=== PATIENT | male | born 1980 | race Caucasian/White ===

== ENCOUNTER 2016-10-23 07:30 | Emergency (ER) | payer MEDICAID ==
[~2016-10-23] VITALS: Ht 167.6 cm; Wt 96.0 kg
[2016-10-23] MEDS ORDERED: MORPHINE SULFATE 4 MG/ML CPJ (NOT FOR IM USE) IV STA (08:48)
[2016-10-23] MEDS ORDERED: SODIUM CHLORIDE 0.9% 1,000 ML IV ONE (08:48)
[2016-10-23] MEDS ORDERED: ONDANSETRON HCL 4MG/2ML VIAL IV STA (08:48)
[2016-10-23 09:06] LABS: BASOPHILS % 0.4 % (0.0-2.0); HEMATOCRIT. 42.8 % (42.0-52.0); HEMOGLOBIN. 14.7 g/dL (14.0-18.0); LYMPHOCYTES % 8.7 % (20.0-50.0); MEAN CORPUSCULAR HEMOGLOBIN 30.3 pg (28.0-32.0); MEAN CORPUSCULAR VOLUME 88.4 fL (80.0-94.0); MEAN PLATELET VOLUME 8.2 fl (7.4-10.4); MONOCYTES % 4.3 % (2.0-8.0); NEUTROPHILS % 86.6 % (40.0-76.0); PLATELET 182 x1000/uL (130-400); RED BLOOD CELL COUNT 4.84 mill/uL (4.7-6.1)
[2016-10-23 09:09] LABS: CHLORIDE 104 mEq/L (98-107)
[2016-10-23 09:10] LABS: INR 1.1; PROTHROMBIN TIME 11.7 sec
[2016-10-23 09:18] LABS: CARBON DIOXIDE 23 mEq/L (21-32)
[2016-10-23 09:18] LABS: GLUCOSE URINE NEGATIVE (NEGATIVE); KETONES URINE TRACE (NEGATIVE); LEUKOCYTE ESTERASE URINE NEGATIVE (NEGATIVE); NITRITE URINE NEGATIVE (NEGATIVE); OCCULT BLOOD URINE NEGATIVE (NEGATIVE); PH URINE 5.5 (4.5-8.0); PROTEIN URINE 1+ (NEGATIVE); SPECIFIC GRAVITY URINE 1.023 (1.005-1.030); UROBILINOGEN URINE 0.2 E.U./dL (0.2-1.0)
[2016-10-23 09:21] LABS: CLARITY URINE CLEAR (CLEAR); COLOR URINE DARK YELLOW (YELLOW)
[2016-10-23 11:11] VITALS: BP 129/84
== END 2016-10-23 11:13 | disposition home or self-care (01) ==
LOC: ER 08:29
DX: R10.9 Unspecified abdominal pain (principal)
CPT/HCPCS: 36415; 80053; 81001; 83690; 85025; 85610; 96361; 96374; 96375; 99285; J2270; J2405; J7030

== ENCOUNTER 2016-10-27 07:43 | Emergency (ER) | payer MEDICAID ==
[~2016-10-27] VITALS: Ht 167.6 cm; Wt 95.0 kg
[2016-10-27] MEDS ORDERED: ONDANSETRON 4MG ODT PO ONE (09:45)
[2016-10-27] MEDS ORDERED: MORPHINE SULFATE 10 MG/ML CPJ IM ONE (09:45)
[2016-10-27] MEDS ORDERED: DOCUSATE SODIUM 100MG CAPSULE PO ONE (09:45)
[2016-10-27 09:53] LABS: BASOPHILS % 0.3 % (0.0-2.0); EOSINOPHILS % 0.2 % (0.0-5.0); HEMATOCRIT. 43.2 % (42.0-52.0); HEMOGLOBIN. 14.6 g/dL (14.0-18.0); LYMPHOCYTES % 13.5 % (20.0-50.0); MEAN CORPUSCULAR VOLUME 88.9 fL (80.0-94.0); MEAN PLATELET VOLUME 8.1 fl (7.4-10.4); MONOCYTES % 11.4 % (2.0-8.0); NEUTROPHILS % 74.6 % (40.0-76.0); PLATELET 283 x1000/uL (130-400); RED BLOOD CELL COUNT 4.86 mill/uL (4.7-6.1); RED CELL DISTRIBUTION WIDTH 14.1 % (11.6-14.6)
[2016-10-27 10:00] LABS: INR 1.1; PROTHROMBIN TIME 10.9 sec
[2016-10-27 10:04] LABS: CARBON DIOXIDE 27 mEq/L (21-32); CHLORIDE 101 mEq/L (98-107)
[2016-10-27 11:37] LABS: CLARITY URINE CLEAR (CLEAR); COLOR URINE DARK YELLOW (YELLOW); GLUCOSE URINE NEGATIVE (NEGATIVE); KETONES URINE NEGATIVE (NEGATIVE); LEUKOCYTE ESTERASE URINE NEGATIVE (NEGATIVE); NITRITE URINE NEGATIVE (NEGATIVE); OCCULT BLOOD URINE NEGATIVE (NEGATIVE); PROTEIN URINE 1+ (NEGATIVE); SPECIFIC GRAVITY URINE 1.025 (1.005-1.030)
[2016-10-27 13:45] VITALS: BP 141/92
== END 2016-10-27 14:23 | disposition home or self-care (01) ==
LOC: ER 09:32
DX: R10.9 Unspecified abdominal pain (principal); K62.89 Other specified diseases of anus and rectum; K59.00 Constipation, unspecified; R03.0 Elevated blood-pressure reading, without diagnosis of hypertension; K76.0 Fatty (change of) liver, not elsewhere classified; R50.9 Fever, unspecified
CPT/HCPCS: 36415; 76700; 80053; 81001; 83690; 85025; 85610; 96372; 99285; J2270; Q0162

== ENCOUNTER 2020-05-08 14:27 | Inpatient (IN) | payer MEDICAID, OTHER ==
[~2020-05-08] VITALS: Ht 167.6 cm; Wt 90.0 kg
[2020-05-08] MEDS ORDERED: DEXAMETHASONE 4MG/ML 1ML VIAL IV ONE (15:15)
[2020-05-08 15:29] LABS: BASOPHILS % 0.3 % (0.0-2.0); HEMOGLOBIN. 13.5 g/dL (14.0-18.0); LYMPHOCYTES % 10.2 % (20.0-50.0); MEAN CORPUSCULAR HEMOGLOBIN 30.4 pg (28.0-32.0); MEAN CORPUSCULAR VOLUME 88.1 fL (80.0-94.0); MONOCYTES % 6.1 % (2.0-8.0); NEUTROPHILS % 83.4 % (40.0-76.0); RED BLOOD CELL COUNT 4.42 mill/uL (4.7-6.1); RED CELL DISTRIBUTION WIDTH 13.9 % (11.6-14.6)
[2020-05-08 15:35] LABS: CHLORIDE 101 mEq/L (98-107)
[2020-05-08] MEDS ORDERED: NITROGLYCERIN 0.4MG TABLET SL SL PRN (16:00)
[2020-05-08] MEDS ORDERED: ONDANSETRON HCL 4MG/2ML INJ IV PRN (16:00)
[2020-05-08] MEDS ORDERED: NEBIVOLOL HCL 5 MG TABLET PO NR (16:00)
[2020-05-08] MEDS ORDERED: ACETAMINOPHEN 650MG/20.3ML UDC PO NR (16:00)
[2020-05-08] MEDS ORDERED: DEXTROSE 50% WATER 50ML SYRINGE IV PRN (16:00)
[2020-05-08] MEDS ORDERED: TRAZODONE HCL 50MG TABLET PO PRN (16:00)
[2020-05-08 16:07] LABS: PLATELET 165 x1000/uL (130-400)
[2020-05-08 16:08] LABS: MEAN PLATELET VOLUME 8.7 fl (7.4-10.4)
[2020-05-08] MEDS: ENOXAPARIN 100MG/ML SYR SUBCUT SCH (16:30)
[2020-05-08] MEDS: METOPROLOL TARTRATE 25MG TABLET PO SCH (17:00)
[2020-05-08] MEDS ORDERED: CEFTRIAXONE 1 G PREMIX 50 ML IV SCH (17:00)
[2020-05-08] MEDS ORDERED: AZITHROMYCIN 500 MG in DEXT 5% WATER 250 ML IV SCH (17:00)
[2020-05-08] MEDS: BLOOD SUGAR DIAGNOSTIC STRIP TEST SCH ×2 (17:00→21:34)
[2020-05-08] MEDS: INSULIN LISPRO 100 UNITS/ML SUBCUT SCH ×2 (18:20→21:48)
[2020-05-08 18:56] LABS: CLARITY URINE CLEAR (CLEAR); COLOR URINE DARK YELLOW (YELLOW); KETONES URINE TRACE (NEGATIVE); LEUKOCYTE ESTERASE URINE NEGATIVE (NEGATIVE); NITRITE URINE NEGATIVE (NEGATIVE); OCCULT BLOOD URINE 2+ (NEGATIVE); PH URINE 5.5 (4.5-8.0); PROTEIN URINE 2+ (NEGATIVE); SPECIFIC GRAVITY URINE 1.027 (1.005-1.030)
[2020-05-08 19:23] LABS: *AMPHETAMINES SCREEN URINE NEGATIVE (NEGATIVE); *BARBITURATES SCREEN URINE NEGATIVE (NEGATIVE); *BENZODIAZEPINES SCREEN URINE NEGATIVE (NEGATIVE); *COCAINE SCREEN URINE NEGATIVE (NEGATIVE)
[2020-05-08 19:24] LABS: CANNABINOID URINE SCREEN NEGATIVE (NEGATIVE); METHADONE URINE SCREEN NEGATIVE (NEGATIVE); OPIATES URINE SCREEN NEGATIVE (NEGATIVE); PHENCYCLIDINE URINE SCREEN NEGATIVE (NEGATIVE)
[2020-05-08 20:59] LABS: BG BASE EXCESS -0.3 mmol/L (-2.0-2.0); BG FRACTION INSPIRED OXYGEN 100; BG HCO3 ACT 21.8 mmol/L (22.0-26.0); BG PCO2 29.3 mmHg (35.0-45.0); BG PH 7.489 (7.350-7.450); BG PO2 76.1 mmHg (75.0-100.0); BG SAMPLE SITE RIGHT RADIAL; BG VENT MODE MASK - BIPAP
[2020-05-09 05:48] LABS: BASOPHILS % 0.7 % (0.0-2.0); HEMATOCRIT. 38.7 % (42.0-52.0); HEMOGLOBIN. 13.3 g/dL (14.0-18.0); LYMPHOCYTES % 14.2 % (20.0-50.0); MEAN CORPUSCULAR HEMOGLOBIN 30.6 pg (28.0-32.0); MEAN CORPUSCULAR VOLUME 89.1 fL (80.0-94.0); MEAN PLATELET VOLUME 8.7 fl (7.4-10.4); MONOCYTES % 5.9 % (2.0-8.0); NEUTROPHILS % 79.2 % (40.0-76.0); PLATELET 148 x1000/uL (130-400); RED BLOOD CELL COUNT 4.34 mill/uL (4.7-6.1); RED CELL DISTRIBUTION WIDTH 13.9 % (11.6-14.6)
[2020-05-09 05:58] LABS: INR 1.1; PROTHROMBIN TIME 11.5 sec (9.6-11.0)
[2020-05-09 06:02] LABS: CHLORIDE 101 mEq/L (98-107)
[2020-05-09 06:08] LABS: LDL CHOLESTEROL 75 mg/dL (5-100)
[2020-05-09 06:10] LABS: HDL CHOLESTEROL 42 mg/dL (40-59); TOTAL IRON BINDING CAPACITY 218 ug/dL (250-450)
[2020-05-09] MEDS: INSULIN LISPRO 100 UNITS/ML SUBCUT SCH ×4 (06:42→21:00)
[2020-05-09] MEDS: BLOOD SUGAR DIAGNOSTIC STRIP TEST SCH ×3 (06:42→17:40)
[2020-05-09] MEDS: ENOXAPARIN 100MG/ML SYR SUBCUT SCH ×2 (06:42→18:43)
[2020-05-09] MEDS: METOPROLOL TARTRATE 25MG TABLET PO SCH ×2 (09:23→18:41)
[2020-05-09] MEDS: ASPIRIN 81MG EC TABLET PO SCH (09:24)
[2020-05-09] MEDS: DEXAMETHASONE 10 MG/ML VIAL IV SCH (09:24)
[2020-05-09] MEDS ORDERED: ALBUTEROL 6.7GM HFA INHALER ORI PRN (11:15)
[2020-05-09 16:00] VITALS: BP 110/53
[2020-05-09 17:45] VITALS: BP 126/94
[2020-05-09] MEDS ORDERED: AZITHROMYCIN 500 MG in DEXT 5% WATER 250 ML IV SCH (18:00)
[2020-05-09 18:21] VITALS: BP 126/94
[2020-05-09 18:23] VITALS: BP 126/94
[2020-05-09] MEDS: CEFTRIAXONE 1,000 MG in DEXTROSE 5% WATER 50 ML IV SCH (18:41)
[2020-05-09 20:00] VITALS: BP 120/77
[2020-05-09] MEDS: AZITHROMYCIN 500 MG in DEXT 5% WATER 250 ML IV SCH (21:29)
[2020-05-10] VITALS: BP 131/85
[2020-05-10 04:00] VITALS: BP 115/74
[2020-05-10] MEDS: ENOXAPARIN 100MG/ML SYR SUBCUT SCH ×2 (05:54→17:16)
[2020-05-10 06:38] LABS: HEMATOCRIT. 39.6 % (42.0-52.0); HEMOGLOBIN. 13.6 g/dL (14.0-18.0); MEAN CORPUSCULAR HEMOGLOBIN 30.9 pg (28.0-32.0); MEAN CORPUSCULAR VOLUME 90.1 fL (80.0-94.0); MEAN PLATELET VOLUME 9.5 fl (7.4-10.4); PLATELET 194 x1000/uL (130-400); RED CELL DISTRIBUTION WIDTH 14.2 % (11.6-14.6)
[2020-05-10] MEDS: BLOOD SUGAR DIAGNOSTIC STRIP TEST SCH ×4 (06:50→21:00)
[2020-05-10] MEDS: INSULIN LISPRO 100 UNITS/ML SUBCUT SCH ×4 (07:23→21:00)
[2020-05-10 07:57] LABS: CHLORIDE 106 mEq/L (98-107)
[2020-05-10 08:00] VITALS: BP 128/71
[2020-05-10] MEDS: ASPIRIN 81MG EC TABLET PO SCH (08:46)
[2020-05-10] MEDS: DEXAMETHASONE 10 MG/ML VIAL IV SCH (08:46)
[2020-05-10] MEDS: METOPROLOL TARTRATE 25MG TABLET PO SCH ×2 (08:51→17:12)
[2020-05-10 12:00] VITALS: BP 123/68
[2020-05-10 13:45] LABS: PLATELET ESTIMATE NORMAL
[2020-05-10 16:00] VITALS: BP 125/77
[2020-05-10] MEDS: AZITHROMYCIN 500 MG in DEXT 5% WATER 250 ML IV SCH (17:12)
[2020-05-10] MEDS: CEFTRIAXONE 1,000 MG in DEXTROSE 5% WATER 50 ML IV SCH (17:12)
[2020-05-10 20:00] VITALS: BP 132/84
[2020-05-11 00:07] VITALS: BP 132/90
[2020-05-11 04:40] VITALS: BP 125/98
[2020-05-11 06:26] LABS: BASOPHILS % 0.2 % (0.0-2.0); HEMATOCRIT. 40.1 % (42.0-52.0); HEMOGLOBIN. 13.5 g/dL (14.0-18.0); LYMPHOCYTES % 8.2 % (20.0-50.0); MEAN CORPUSCULAR HEMOGLOBIN 30.3 pg (28.0-32.0); MEAN CORPUSCULAR VOLUME 90.1 fL (80.0-94.0); MEAN PLATELET VOLUME 9.2 fl (7.4-10.4); MONOCYTES % 2.5 % (2.0-8.0); NEUTROPHILS % 89.1 % (40.0-76.0); PLATELET 190 x1000/uL (130-400); RED BLOOD CELL COUNT 4.45 mill/uL (4.7-6.1); RED CELL DISTRIBUTION WIDTH 13.5 % (11.6-14.6)
[2020-05-11] MEDS: ENOXAPARIN 100MG/ML SYR SUBCUT SCH ×2 (06:30→18:04)
[2020-05-11] MEDS: BLOOD SUGAR DIAGNOSTIC STRIP TEST SCH ×4 (06:33→21:11)
[2020-05-11] MEDS: INSULIN LISPRO 100 UNITS/ML SUBCUT SCH ×4 (06:33→21:00)
[2020-05-11 06:50] LABS: CHLORIDE 107 mEq/L (98-107)
[2020-05-11 08:00] VITALS: BP 135/70
[2020-05-11] MEDS: ASPIRIN 81MG EC TABLET PO SCH (09:15)
[2020-05-11] MEDS: METOPROLOL TARTRATE 25MG TABLET PO SCH ×2 (09:15→17:00)
[2020-05-11] MEDS: DEXAMETHASONE 10 MG/ML VIAL IV SCH (09:15)
[2020-05-11 12:27] VITALS: BP 141/83
[2020-05-11 16:00] VITALS: BP 106/76
[2020-05-11] MEDS: CEFTRIAXONE 1,000 MG in DEXTROSE 5% WATER 50 ML IV SCH (18:04)
[2020-05-11] MEDS: AZITHROMYCIN 500 MG in DEXT 5% WATER 250 ML IV SCH (18:04)
[2020-05-11 20:00] VITALS: BP 113/65
[2020-05-12] VITALS: BP 121/85
[2020-05-12 04:00] VITALS: BP 130/82
[2020-05-12] MEDS: ENOXAPARIN 100MG/ML SYR SUBCUT SCH ×2 (06:57→17:47)
[2020-05-12] MEDS: BLOOD SUGAR DIAGNOSTIC STRIP TEST SCH ×4 (07:39→21:00)
[2020-05-12] MEDS: INSULIN LISPRO 100 UNITS/ML SUBCUT SCH ×4 (07:39→21:00)
[2020-05-12 08:00] VITALS: BP 120/82
[2020-05-12 08:29] LABS: CHLORIDE 106 mEq/L (98-107)
[2020-05-12 08:45] LABS: HEMATOCRIT. 42.2 % (42.0-52.0); HEMOGLOBIN. 14.2 g/dL (14.0-18.0); LYMPHOCYTES % 9.1 % (20.0-50.0); MEAN CORPUSCULAR HEMOGLOBIN 30.1 pg (28.0-32.0); MEAN CORPUSCULAR VOLUME 89.5 fL (80.0-94.0); MEAN PLATELET VOLUME 9.5 fl (7.4-10.4); MONOCYTES % 2.1 % (2.0-8.0); NEUTROPHILS % 88.8 % (40.0-76.0); PLATELET 221 x1000/uL (130-400); RED BLOOD CELL COUNT 4.72 mill/uL (4.7-6.1); RED CELL DISTRIBUTION WIDTH 13.9 % (11.6-14.6)
[2020-05-12] MEDS: DEXAMETHASONE 10 MG/ML VIAL IV SCH (09:24)
[2020-05-12] MEDS: ASPIRIN 81MG EC TABLET PO SCH (09:24)
[2020-05-12] MEDS: METOPROLOL TARTRATE 25MG TABLET PO SCH ×2 (09:25→17:47)
[2020-05-12 12:00] VITALS: BP 121/67
[2020-05-12 16:00] VITALS: BP 115/58
[2020-05-12] MEDS: AZITHROMYCIN 500 MG in DEXT 5% WATER 250 ML IV SCH (17:47)
[2020-05-12] MEDS: CEFTRIAXONE 1,000 MG in DEXTROSE 5% WATER 50 ML IV SCH (17:47)
[2020-05-12 20:00] VITALS: BP 112/72
[2020-05-12] MEDS ORDERED: IVERMECTIN 3 MG TABLET PO NR (22:00)
[2020-05-13] VITALS (7 sets, daily range): BP systolic 94–147; BP diastolic 50–71
[2020-05-13] MEDS: ENOXAPARIN 100MG/ML SYR SUBCUT SCH ×2 (06:38→17:24)
[2020-05-13 06:58] LABS: CHLORIDE 104 mEq/L (98-107)
[2020-05-13 07:33] LABS: HEMATOCRIT. 43.6 % (42.0-52.0); HEMOGLOBIN. 14.5 g/dL (14.0-18.0); MEAN CORPUSCULAR HEMOGLOBIN 29.7 pg (28.0-32.0); MEAN CORPUSCULAR VOLUME 89.1 fL (80.0-94.0); MEAN PLATELET VOLUME 9.3 fl (7.4-10.4); PLATELET 255 x1000/uL (130-400); RED CELL DISTRIBUTION WIDTH 13.7 % (11.6-14.6)
[2020-05-13] MEDS: BLOOD SUGAR DIAGNOSTIC STRIP TEST SCH ×4 (07:40→21:17)
[2020-05-13] MEDS: INSULIN LISPRO 100 UNITS/ML SUBCUT SCH ×4 (08:10→22:00)
[2020-05-13] MEDS: METOPROLOL TARTRATE 25MG TABLET PO SCH ×2 (08:58→17:25)
[2020-05-13] MEDS: DEXAMETHASONE 10 MG/ML VIAL IV SCH (09:27)
[2020-05-13] MEDS: ASPIRIN 81MG EC TABLET PO SCH (09:27)
[2020-05-13] MEDS: ACETAMINOPHEN 325MG TABLET PO PRN (12:25)
[2020-05-13 13:07] LABS: ATYPICAL LYMPHOCYTES 1; PLATELET ESTIMATE NORMAL
[2020-05-14] VITALS: BP 104/70
[2020-05-14] MEDS: ENOXAPARIN 100MG/ML SYR SUBCUT SCH ×2 (06:24→16:40)
[2020-05-14 06:40] LABS: HEMATOCRIT. 44.4 % (42.0-52.0); HEMOGLOBIN. 15.1 g/dL (14.0-18.0); MEAN CORPUSCULAR HEMOGLOBIN 30.5 pg (28.0-32.0); MEAN CORPUSCULAR VOLUME 90.1 fL (80.0-94.0); MEAN PLATELET VOLUME 9.6 fl (7.4-10.4); PLATELET 283 x1000/uL (130-400); RED BLOOD CELL COUNT 4.93 mill/uL (4.7-6.1); RED CELL DISTRIBUTION WIDTH 13.8 % (11.6-14.6)
[2020-05-14 07:33] LABS: CHLORIDE 103 mEq/L (98-107)
[2020-05-14] MEDS: INSULIN LISPRO 100 UNITS/ML SUBCUT SCH ×2 (08:10→12:51)
[2020-05-14] MEDS: BLOOD SUGAR DIAGNOSTIC STRIP TEST SCH ×2 (08:32→12:50)
[2020-05-14] MEDS: ASPIRIN 81MG EC TABLET PO SCH (08:58)
[2020-05-14] MEDS: DEXAMETHASONE 10 MG/ML VIAL IV SCH (08:58)
[2020-05-14] MEDS: METOPROLOL TARTRATE 25MG TABLET PO SCH ×3 (08:59→17:00)
[2020-05-14 12:00] VITALS: BP 126/56
[2020-05-14 14:37] LABS: PLATELET ESTIMATE NORMAL
[2020-05-14 16:00] VITALS: BP 96/55
[2020-05-14 20:00] VITALS: BP 109/75
[2020-05-14] MEDS ORDERED: IVERMECTIN 3 MG TABLET PO NR (22:00)
[2020-05-15] VITALS: BP 124/74
[2020-05-15 04:00] VITALS: BP 113/83
[2020-05-15] MEDS: ENOXAPARIN 100MG/ML SYR SUBCUT SCH ×2 (06:32→17:16)
[2020-05-15 07:29] LABS: HEMATOCRIT. 44.3 % (42.0-52.0); HEMOGLOBIN. 14.7 g/dL (14.0-18.0); MEAN CORPUSCULAR VOLUME 90.4 fL (80.0-94.0); MEAN PLATELET VOLUME 9.2 fl (7.4-10.4); PLATELET 294 x1000/uL (130-400); RED CELL DISTRIBUTION WIDTH 13.8 % (11.6-14.6)
[2020-05-15 08:00] VITALS: BP 106/71
[2020-05-15 08:14] LABS: CHLORIDE 105 mEq/L (98-107)
[2020-05-15] MEDS: METOPROLOL TARTRATE 25MG TABLET PO SCH ×2 (09:00→17:16)
[2020-05-15] MEDS: ASPIRIN 81MG EC TABLET PO SCH (09:26)
[2020-05-15] MEDS: DEXAMETHASONE 10 MG/ML VIAL IV SCH (09:26)
[2020-05-15 14:16] LABS: PLATELET ESTIMATE NORMAL
[2020-05-15 16:00] VITALS: BP 127/75
[2020-05-15 20:00] VITALS: BP 133/67
[2020-05-16] VITALS: BP 135/73
[2020-05-16 04:00] VITALS: BP 123/72
[2020-05-16] MEDS: ENOXAPARIN 100MG/ML SYR SUBCUT SCH ×2 (06:33→17:00)
[2020-05-16 07:20] LABS: CHLORIDE 105 mEq/L (98-107)
[2020-05-16 07:24] LABS: HEMOGLOBIN. 14.4 g/dL (14.0-18.0); MEAN CORPUSCULAR HEMOGLOBIN 30.3 pg (28.0-32.0); MEAN CORPUSCULAR VOLUME 89.9 fL (80.0-94.0); MEAN PLATELET VOLUME 9.4 fl (7.4-10.4); PLATELET 310 x1000/uL (130-400); RED BLOOD CELL COUNT 4.78 mill/uL (4.7-6.1); RED CELL DISTRIBUTION WIDTH 13.5 % (11.6-14.6)
[2020-05-16 08:00] VITALS: BP 110/76
[2020-05-16] MEDS: ASPIRIN 81MG EC TABLET PO SCH (08:56)
[2020-05-16] MEDS: DEXAMETHASONE 10 MG/ML VIAL IV SCH (08:57)
[2020-05-16] MEDS: METOPROLOL TARTRATE 25MG TABLET PO SCH ×2 (08:57→17:00)
[2020-05-16 18:00] LABS: PLATELET ESTIMATE NORMAL
[2020-05-16 20:00] VITALS: BP 107/77
[2020-05-17] VITALS: BP 109/72
[2020-05-17 04:00] VITALS: BP 92/61
[2020-05-17] MEDS: ENOXAPARIN 100MG/ML SYR SUBCUT SCH ×2 (06:03→16:15)
[2020-05-17 06:41] LABS: MEAN CORPUSCULAR VOLUME 90.1 fL (80.0-94.0); MEAN PLATELET VOLUME 9.4 fl (7.4-10.4); PLATELET 304 x1000/uL (130-400); RED BLOOD CELL COUNT 4.99 mill/uL (4.7-6.1); RED CELL DISTRIBUTION WIDTH 13.4 % (11.6-14.6)
[2020-05-17 07:03] LABS: CHLORIDE 103 mEq/L (98-107)
[2020-05-17] MEDS: METOPROLOL TARTRATE 25MG TABLET PO SCH ×2 (09:00→16:15)
[2020-05-17] MEDS: ASPIRIN 81MG EC TABLET PO SCH (09:16)
[2020-05-17] MEDS: DEXAMETHASONE 10 MG/ML VIAL IV SCH (09:16)
[2020-05-17 17:28] LABS: PLATELET ESTIMATE NORMAL
[2020-05-17 20:00] VITALS: BP 109/62
[2020-05-18] VITALS: BP 111/61
[2020-05-18 04:00] VITALS: BP 103/45
[2020-05-18] MEDS: ENOXAPARIN 100MG/ML SYR SUBCUT SCH ×2 (06:48→17:35)
[2020-05-18] MEDS: METOPROLOL TARTRATE 25MG TABLET PO SCH ×2 (07:59→17:00)
[2020-05-18 08:00] VITALS: BP 101/85
[2020-05-18] MEDS: ASPIRIN 81MG EC TABLET PO SCH (08:08)
[2020-05-18] MEDS: DEXAMETHASONE 10 MG/ML VIAL IV SCH (08:09)
[2020-05-18 12:00] VITALS: BP 100/76
[2020-05-18 16:00] VITALS: BP 107/72
[2020-05-18 20:00] VITALS: BP 102/70
[2020-05-19] VITALS: BP 100/69
[2020-05-19 03:58] VITALS: BP 96/58
[2020-05-19] MEDS: ENOXAPARIN 100MG/ML SYR SUBCUT SCH ×2 (05:04→17:44)
[2020-05-19 08:01] VITALS: BP 103/59
[2020-05-19] MEDS: ASPIRIN 81MG EC TABLET PO SCH (08:44)
[2020-05-19] MEDS: DEXAMETHASONE 10 MG/ML VIAL IV SCH (08:44)
[2020-05-19] MEDS: METOPROLOL TARTRATE 25MG TABLET PO SCH ×2 (08:45→17:00)
[2020-05-19 12:00] VITALS: BP 102/66
[2020-05-19 16:00] VITALS: BP 11/74
[2020-05-19 20:00] VITALS: BP 107/67
[2020-05-20] VITALS (7 sets, daily range): BP systolic 93–125; BP diastolic 49–76
[2020-05-20] MEDS: ENOXAPARIN 100MG/ML SYR SUBCUT SCH ×2 (05:06→17:26)
[2020-05-20] MEDS: METOPROLOL TARTRATE 25MG TABLET PO SCH ×2 (08:38→16:38)
[2020-05-20] MEDS: ASPIRIN 81MG EC TABLET PO SCH (08:44)
[2020-05-21] VITALS: BP 108/66
[2020-05-21 04:00] VITALS: BP 104/75
[2020-05-21] MEDS: ENOXAPARIN 100MG/ML SYR SUBCUT SCH ×2 (05:18→17:11)
[2020-05-21 08:00] VITALS: BP 117/86
[2020-05-21] MEDS: METOPROLOL TARTRATE 25MG TABLET PO SCH ×2 (08:16→17:10)
[2020-05-21] MEDS: ASPIRIN 81MG EC TABLET PO SCH (08:16)
[2020-05-21] MEDS: GUAIFENESIN 200MG/10ML SUGAR FREE UDC PO PRN ×2 (08:33→17:09)
[2020-05-21 12:00] VITALS: BP 111/72
[2020-05-21 16:00] VITALS: BP 117/81
[2020-05-21 20:00] VITALS: BP 93/55
[2020-05-22] VITALS (7 sets, daily range): BP systolic 81–120; BP diastolic 49–75
[2020-05-22] MEDS: ACETAMINOPHEN 325MG TABLET PO PRN (00:45)
[2020-05-22] MEDS: ENOXAPARIN 100MG/ML SYR SUBCUT SCH ×2 (05:53→17:17)
[2020-05-22] MEDS: ASPIRIN 81MG EC TABLET PO SCH (08:26)
[2020-05-22] MEDS: GUAIFENESIN 200MG/10ML SUGAR FREE UDC PO PRN (08:26)
[2020-05-22] MEDS: METOPROLOL TARTRATE 25MG TABLET PO SCH ×2 (08:27→17:18)
[2020-05-23 04:00] VITALS: BP 100/71
[2020-05-23] MEDS: ENOXAPARIN 100MG/ML SYR SUBCUT SCH ×2 (06:00→17:29)
[2020-05-23 08:19] VITALS: BP 132/71
[2020-05-23] MEDS: ASPIRIN 81MG EC TABLET PO SCH (08:21)
[2020-05-23] MEDS: METOPROLOL TARTRATE 25MG TABLET PO SCH (08:21)
[2020-05-23 12:00] VITALS: BP 113/74
[2020-05-23] MEDS: NEBIVOLOL HCL 5 MG TABLET PO SCH (15:16)
[2020-05-23 16:00] VITALS: BP 97/58
[2020-05-23 16:01] LABS: BASOPHILS % 0.4 % (0.0-2.0); EOSINOPHILS % 4.7 % (0.0-5.0); HEMOGLOBIN. 12.9 g/dL (14.0-18.0); LYMPHOCYTES % 12.3 % (20.0-50.0); MEAN CORPUSCULAR VOLUME 90.2 fL (80.0-94.0); MEAN PLATELET VOLUME 8.4 fl (7.4-10.4); MONOCYTES % 2.9 % (2.0-8.0); NEUTROPHILS % 79.7 % (40.0-76.0); PLATELET 270 x1000/uL (130-400); RED BLOOD CELL COUNT 4.32 mill/uL (4.7-6.1); RED CELL DISTRIBUTION WIDTH 14.2 % (11.6-14.6)
[2020-05-23 16:13] LABS: CHLORIDE 105 mEq/L (98-107)
[2020-05-23 20:00] VITALS: BP 100/50
[2020-05-24 00:01] VITALS: BP 108/61
[2020-05-24 04:00] VITALS: BP 113/80
[2020-05-24] MEDS: ENOXAPARIN 100MG/ML SYR SUBCUT SCH ×2 (05:31→17:44)
[2020-05-24 08:00] VITALS: BP 102/69
[2020-05-24] MEDS: NEBIVOLOL HCL 5 MG TABLET PO SCH (08:28)
[2020-05-24] MEDS: ASPIRIN 81MG EC TABLET PO SCH (08:28)
[2020-05-24 12:00] VITALS: BP 102/69
[2020-05-24 16:00] VITALS: BP 102/69
[2020-05-24] MEDS: GUAIFENESIN 200MG/10ML SUGAR FREE UDC PO PRN (17:44)
[2020-05-24 20:00] VITALS: BP 101/52
[2020-05-25 00:05] VITALS: BP 107/66
[2020-05-25 04:00] VITALS: BP 119/64
[2020-05-25] MEDS: ENOXAPARIN 100MG/ML SYR SUBCUT SCH ×2 (05:41→16:56)
[2020-05-25 08:00] VITALS: BP 119/64
[2020-05-25 09:47] LABS: BG BASE EXCESS 1.5 mmol/L (-2.0-2.0); BG CARBOXYHEMOGLOBIN 0.1 % (0.5-1.5); BG DEOXYHEMOGLOBIN 7.6 % (0.0-5.0); BG HCO3 ACT 25.8 mmol/L (22.0-26.0); BG METHEMOGLOBIN 0.1 % (0.0-1.5); BG OXYGEN SATURATION 92.4 % (92.0-98.5); BG OXYHEMOGLOBIN 92.2 % (94.0-97.0); BG PCO2 39.9 mmHg (35.0-45.0); BG PH 7.429 (7.350-7.450); BG PO2 64.4 mmHg (75.0-100.0); BG SAMPLE SITE RIGHT RADIAL; BG TOTAL HEMOGLOBIN 13.9 g/dL (12.0-18.0); BG VENT MODE 99.9
[2020-05-25] MEDS: ASPIRIN 81MG EC TABLET PO SCH (10:07)
[2020-05-25] MEDS: NEBIVOLOL HCL 5 MG TABLET PO SCH (10:08)
[2020-05-25 12:00] VITALS: BP 104/64
[2020-05-25 16:00] VITALS: BP 120/81
[2020-05-25 20:00] VITALS: BP 110/78
[2020-05-25] MEDS: ACETAMINOPHEN 325MG TABLET PO PRN (22:17)
[2020-05-26] VITALS: BP 105/70
[2020-05-26 04:00] VITALS: BP 120/74
[2020-05-26] MEDS: ENOXAPARIN 100MG/ML SYR SUBCUT SCH ×2 (05:57→17:16)
[2020-05-26 08:00] VITALS: BP 135/84
[2020-05-26] MEDS: ASPIRIN 81MG EC TABLET PO SCH (09:38)
[2020-05-26] MEDS: NEBIVOLOL HCL 5 MG TABLET PO SCH (09:38)
[2020-05-26 12:00] VITALS: BP 124/85
[2020-05-26 16:00] VITALS: BP 117/76
[2020-05-26] MEDS: GUAIFENESIN 200MG/10ML SUGAR FREE UDC PO PRN ×2 (17:24→21:53)
[2020-05-26 20:00] VITALS: BP 117/57
[2020-05-27] VITALS: BP 129/65
[2020-05-27] MEDS: GUAIFENESIN 200MG/10ML SUGAR FREE UDC PO PRN (01:59)
[2020-05-27 04:00] VITALS: BP 126/78
[2020-05-27] MEDS: ENOXAPARIN 100MG/ML SYR SUBCUT SCH ×2 (05:13→17:14)
[2020-05-27 08:00] VITALS: BP 120/81
[2020-05-27] MEDS: NEBIVOLOL HCL 5 MG TABLET PO SCH (08:41)
[2020-05-27] MEDS: ASPIRIN 81MG EC TABLET PO SCH (08:41)
[2020-05-27 12:00] VITALS: BP 121/73
[2020-05-27 16:00] VITALS: BP 103/73
[2020-05-27 20:00] VITALS: BP 94/57
[2020-05-28] VITALS: BP 122/50
[2020-05-28] MEDS: ACETAMINOPHEN 325MG TABLET PO PRN (00:23)
[2020-05-28 04:00] VITALS: BP 97/58
[2020-05-28] MEDS: ENOXAPARIN 100MG/ML SYR SUBCUT SCH ×2 (06:00→18:08)
[2020-05-28 08:00] VITALS: BP 100/62
[2020-05-28] MEDS: NEBIVOLOL HCL 5 MG TABLET PO SCH (09:00)
[2020-05-28] MEDS: ASPIRIN 81MG EC TABLET PO SCH (09:26)
[2020-05-28 12:00] VITALS: BP 96/68
[2020-05-28] MEDS ORDERED: IPRATROPIUM/ALBUTEROL 0.5-3(2.5)MG/3ML NEB HHN PRN (13:15)
[2020-05-28 16:00] VITALS: BP 112/75
[2020-05-28 20:00] VITALS: BP 100/71
[2020-05-28] MEDS: IPRATROPIUM/ALBUTEROL 0.5-3(2.5)MG/3ML NEB HHN SCH (21:38)
[2020-05-29] VITALS (7 sets, daily range): BP systolic 103–123; BP diastolic 63–76
[2020-05-29] MEDS: IPRATROPIUM/ALBUTEROL 0.5-3(2.5)MG/3ML NEB HHN SCH ×3 (01:53→21:12)
[2020-05-29] MEDS: ENOXAPARIN 100MG/ML SYR SUBCUT SCH ×2 (06:27→18:39)
[2020-05-29] MEDS: ASPIRIN 81MG EC TABLET PO SCH (09:05)
[2020-05-29] MEDS: NEBIVOLOL HCL 5 MG TABLET PO SCH (09:07)
[2020-05-30] VITALS: BP_SYST 107; BP_SYST 93; BP_DIAS 53
[2020-05-30] MEDS: IPRATROPIUM/ALBUTEROL 0.5-3(2.5)MG/3ML NEB HHN SCH ×4 (02:17→20:16)
[2020-05-30 04:00] VITALS: BP 104/68
[2020-05-30] MEDS: ENOXAPARIN 100MG/ML SYR SUBCUT SCH ×2 (06:25→17:22)
[2020-05-30 07:58] VITALS: BP 105/66
[2020-05-30] MEDS: NEBIVOLOL HCL 5 MG TABLET PO SCH (08:08)
[2020-05-30] MEDS: ASPIRIN 81MG EC TABLET PO SCH (08:41)
[2020-05-30 12:00] VITALS: BP 112/62
[2020-05-30 15:48] VITALS: BP 127/90
[2020-05-30 20:00] VITALS: BP 98/60
[2020-05-30] MEDS: ACETAMINOPHEN 325MG TABLET PO PRN (23:54)
[2020-05-31] VITALS: BP 112/66
[2020-05-31] MEDS: IPRATROPIUM/ALBUTEROL 0.5-3(2.5)MG/3ML NEB HHN SCH ×3 (01:09→21:26)
[2020-05-31 04:00] VITALS: BP 105/70
[2020-05-31] MEDS: ENOXAPARIN 100MG/ML SYR SUBCUT SCH ×2 (06:05→18:54)
[2020-05-31 08:00] VITALS: BP 112/86
[2020-05-31] MEDS: ASPIRIN 81MG EC TABLET PO SCH (08:53)
[2020-05-31] MEDS: NEBIVOLOL HCL 5 MG TABLET PO SCH (08:54)
[2020-05-31 12:00] VITALS: BP 115/81
[2020-05-31 16:06] VITALS: BP 104/75
[2020-05-31 20:00] VITALS: BP 112/66
[2020-06-01] VITALS: BP 107/88
[2020-06-01] MEDS: IPRATROPIUM/ALBUTEROL 0.5-3(2.5)MG/3ML NEB HHN SCH ×5 (02:39→20:24)
[2020-06-01 03:59] VITALS: BP 102/69
[2020-06-01] MEDS: ENOXAPARIN 100MG/ML SYR SUBCUT SCH ×2 (05:03→18:47)
[2020-06-01 08:00] VITALS: BP 128/58
[2020-06-01] MEDS: ASPIRIN 81MG EC TABLET PO SCH (08:14)
[2020-06-01] MEDS: NEBIVOLOL HCL 5 MG TABLET PO SCH (08:14)
[2020-06-01 11:13] LABS: BASOPHILS % 1.4 % (0.0-2.0); EOSINOPHILS % 11.7 % (0.0-5.0); HEMATOCRIT. 38.1 % (42.0-52.0); HEMOGLOBIN. 13.1 g/dL (14.0-18.0); LYMPHOCYTES % 25.3 % (20.0-50.0); MEAN CORPUSCULAR HEMOGLOBIN 31.1 pg (28.0-32.0); MEAN CORPUSCULAR VOLUME 90.2 fL (80.0-94.0); MEAN PLATELET VOLUME 8.1 fl (7.4-10.4); MONOCYTES % 7.8 % (2.0-8.0); NEUTROPHILS % 53.8 % (40.0-76.0); PLATELET 361 x1000/uL (130-400); RED BLOOD CELL COUNT 4.22 mill/uL (4.7-6.1); RED CELL DISTRIBUTION WIDTH 14.1 % (11.6-14.6)
[2020-06-01 11:35] LABS: CHLORIDE 101 mEq/L (98-107)
[2020-06-01 12:00] VITALS: BP 109/83
[2020-06-01 16:00] VITALS: BP 111/66
[2020-06-01 20:00] VITALS: BP 111/72
[2020-06-01] MEDS: ACETAMINOPHEN 325MG TABLET PO PRN (21:49)
[2020-06-02] VITALS: BP 93/58
[2020-06-02] MEDS: IPRATROPIUM/ALBUTEROL 0.5-3(2.5)MG/3ML NEB HHN SCH ×4 (01:37→21:32)
[2020-06-02 04:00] VITALS: BP 113/66
[2020-06-02] MEDS: ENOXAPARIN 100MG/ML SYR SUBCUT SCH ×2 (05:03→17:57)
[2020-06-02 08:00] VITALS: BP 107/78
[2020-06-02] MEDS: NEBIVOLOL HCL 5 MG TABLET PO SCH (08:46)
[2020-06-02] MEDS: ASPIRIN 81MG EC TABLET PO SCH (08:47)
[2020-06-02 12:00] VITALS: BP 117/70
[2020-06-02 16:00] VITALS: BP 140/69
[2020-06-02 20:42] VITALS: BP 109/64
[2020-06-02] MEDS: GUAIFENESIN 200MG/10ML SUGAR FREE UDC PO PRN (20:51)
[2020-06-03] VITALS: BP 98/55
[2020-06-03] MEDS: GUAIFENESIN 200MG/10ML SUGAR FREE UDC PO PRN (02:37)
[2020-06-03] MEDS: IPRATROPIUM/ALBUTEROL 0.5-3(2.5)MG/3ML NEB HHN SCH ×4 (02:57→21:03)
[2020-06-03 04:00] VITALS: BP 99/61
[2020-06-03] MEDS: ENOXAPARIN 100MG/ML SYR SUBCUT SCH ×2 (06:03→17:07)
[2020-06-03 07:57] VITALS: BP 109/76
[2020-06-03] MEDS: ASPIRIN 81MG EC TABLET PO SCH (08:32)
[2020-06-03] MEDS: NEBIVOLOL HCL 5 MG TABLET PO SCH ×2 (08:33→09:00)
[2020-06-03 12:00] VITALS: BP 113/73
[2020-06-03 16:00] VITALS: BP 110/2
[2020-06-03 20:24] VITALS: BP 113/74
[2020-06-04 00:34] VITALS: BP 129/95
[2020-06-04] MEDS: IPRATROPIUM/ALBUTEROL 0.5-3(2.5)MG/3ML NEB HHN SCH ×3 (02:50→14:46)
[2020-06-04 04:00] VITALS: BP 108/66
[2020-06-04 08:06] VITALS: BP 111/79
[2020-06-04] MEDS: NEBIVOLOL HCL 5 MG TABLET PO SCH (08:40)
[2020-06-04] MEDS: ASPIRIN 81MG EC TABLET PO SCH (08:40)
[2020-06-04 11:38] VITALS: BP 111/79
[2020-06-04 12:00] VITALS: BP 120/68
== END 2020-06-04 16:42 | DRG 871 ==
LOC: ER 14:27 → MICUSO 15:14 → 7WST 05-09 16:11 → 6WST 05-27 18:26
PROVIDERS: ADMIT Family Medicine Adult Medicine; ATTEND Family Medicine Adult Medicine
PROC: 5A09457 Assistance with Respiratory Ventilation, 24-96 Consecutive Hours, Continuous Positive Airway Pressure (ICD-10-PCS; principal; 2020-05-08)
DX: A41.89 Other specified sepsis (principal); I21.4 Non-ST elevation (NSTEMI) myocardial infarction; J96.01 Acute respiratory failure with hypoxia; U07.1 COVID-19; J12.82 Pneumonia due to coronavirus disease 2019; E44.0 Moderate protein-calorie malnutrition; E87.1 Hypo-osmolality and hyponatremia; D64.9 Anemia, unspecified; E11.9 Type 2 diabetes mellitus without complications; E66.9 Obesity, unspecified; F17.210 Nicotine dependence, cigarettes, uncomplicated; I10 Essential (primary) hypertension; Z79.4 Long term (current) use of insulin; Z68.32 Body mass index [BMI] 32.0-32.9, adult; Z79.899 Other long term (current) drug therapy
CPT/HCPCS: 36415; 36600; 71045; 80048; 80053; 80061; 80305; 81003; 82375; 82728; 82805; 82962; 83036; 83540; 83550; 83735; 83880; 84145; 84443; 84484; 85025; 86140; 87426; 93005; 93306; 94640; 94660; 97110; 97112; 97116; 97162; 97530; 97535; 99285; C1893; J0456; J0696; J1100; J1650; J1815; J7060; J7070; U0003